=== PATIENT | female | born 1980 | race Caucasian/White ===

== ENCOUNTER 2025-02-23 01:36 | Emergency (ER) | payer MEDICAID, SELFPAY ==
[2025-02-23 01:39] VITALS: BMI 34.4
--- NOTE | 2025-02-23 01:52 | XR_ITS ---
Examination: PA chest single view Technique: Upright PA chest single view Date and time: February 23, 2025, 0206 hrs. Indications: Chest pain radiating to left arm beginning one hour ago. Findings: Normal heart size. The lungs are clear. The osseous structures are intact Impression: No active disease.
[2025-02-23 02:00] VITALS: BP 137/81; PULSE 83; RESP 18; TEMP 36.9; O2SAT 100
[2025-02-23 02:21] LABS: Basophils # (Auto) 0.1 Thou/mm3 (0.0-0.2); Basophils % (Auto) 1 % (0-2.5); Eosinophils # (Auto) 0.3 Thou/mm3 (0.0-0.5); Eosinophils % (Auto) 3 % (0-10); Hematocrit 37.6 % (36.0-46.0); Hemoglobin 12.3 g/dL (12.0-16.0); Immature Granulocytes Auto 0.01 Thou/mm3 (0.00-0.00); Lymphocytes # (Auto) 3.4 Thou/mm3 (1.0-4.8); Lymphocytes % (Auto) 33 % (10-50); Mean Corpuscular HGB Conc 32.7 g/dl (31.0-37.0); Mean Corpuscular Hemoglobin 28.5 pg (25.0-35.0); Mean Corpuscular Volume 87 fL (80-100); Monocytes # (Auto) 0.6 Thou/mm3 (0.0-0.8); Monocytes % (Auto) 6 % (0-12); Neutrophils # (Auto) 5.9 Thou/mm3 (1.8-7.7); Neutrophils % (Auto) 58 % (37-80); Nucleated Red Blood Cell # 0.00 Thou/mm3 (0.00-0.00); Nucleated Red Blood Cell % 0 /100 WBC (0); Platelet Count 210 Thou/mm3 (140-440); RDW Standard Deviation 48.3 fL (36.4-46.3); Red Blood Count 4.31 Miln/mm3 (4.00-5.20); White Blood Count 10.3 Thou/mm3 (3.6-11.0)
[2025-02-23] MEDS: ONDANSETRON ODT 4 MG TABRAP PO (02:30)
[2025-02-23 02:37] LABS: Collection Type, Urine Clean Catch
[2025-02-23 02:40] LABS: Bilirubin,Urine Negative (Negative); Blood,Urine 1+ (Negative); Clarity,Urine Clear (Clear/Hazy); Color,Urine Colorless (Lt Yel-Yel); Glucose, Urine Negative (Negative); Ketones,Urine Negative (Negative); Leukocyte Esterase,Urine Negative (Negative); Nitrite,Urine Negative (Negative); PH,Urine 6.0 (5.0-7.0); Protein,Urine 1+ (Neg - Trace); RBC,Urine 10 /hpf (0-3); Specific Gravity,Urine 1.011 (1.001-1.035); Squamous Epithelial Cell,Urine < 1 /hpf (0-5); Urobilinogen,Urine Negative mg/dL (0.0-1.0); WBC,Urine 1 /hpf (0-5)
[2025-02-23 02:58] LABS: B-Type Natriuretic Peptide < 20 pg/mL (0-100)
[2025-02-23 03:03] LABS: Alanine Aminotransferase 68 U/L (10-49); Albumin, Serum 4.4 gm/dL (3.5-5.0); Albumin/Globulin Ratio 1.4 (1.2-2.2); Alkaline Phosphatase 74 U/L (46-116); Anion Gap 12 (7-16); Aspartate Amino Transferase 49 U/L (0-34); BUN/Creatinine Ratio 14 Ratio (12-20); Bilirubin,Total 0.5 mg/dL (0.3-1.2); Blood Urea Nitrogen 18 mg/dL (9-23); Calcium 9.5 mg/dL (8.3-10.6); Calcium (Corrected) 9.5 mg/dL (8.5-10.1); Carbon Dioxide 22.6 mMol/L (20.0-31.0); Chloride 107 mMol/L (98-107); Creatinine (Component) 1.3 mg/dL (0.6-1.3); Estimated Creatinine Clearance 67.7 mL/min (>60); Globulin 3.1 gm/dL (2.3-3.5); Glucose 150 mg/dL (74-106); Osmolality,Calculated 288 (275-295); Potassium 3.8 mMol/L (3.4-5.1); Sodium 142 mMol/L (136-145); Thyroid Stimulating Hormone 4.84 uIU/mL (0.55-4.78); Total Protein 7.5 gm/dL (5.7-8.2); Troponin I < 0.002 ng/mL (0.0-0.045); eGFR 52 See Note
[2025-02-23 03:03] LABS: HCG Qualitative,Urine Negative
--- NOTE | 2025-02-23 03:38 | PD.EDCHEST ---
ED Chest Pain RME/HPI General Chief Complaint: Chest Pain Stated Complaint: CHEST PAIN Time Seen by Provider: 02/23/25 01:41 Arrival date/time: 02/23/25 01:36 This is a case of 44-year-old female with history of diabetes came in in the emergency room due to chest pain sharp in character radiating to the left arm for 1 day patient denies any shortness of breath or palpitation persistence of the symptoms this patient decided to sought consult here in the emergency room Limitations: no limitations Related Data Previous Rx's ?Medication ?Instructions ?Recorded metformin 500 mg tablet 500 mg PO QDAY #30 tabs 04/25/20 Allergies Allergy/AdvReac Type Severity Reaction Status Date / Time Penicillins Allergy Intermediate THROAT Verified 02/23/25 01:37 CLOSES, VOMIT, RASH acetaminophen Allergy Mild RASH, VOMIT Verified 02/23/25 01:37 Review of Systems Review of Systems Systems Reviewed: All systems reviewed, normal except as documented Constitutional Constitutional: Reports system reviewed and no additional complaints, except as documented and Reports as per HPI Cardiovascular Cardiovascular: Reports system reviewed and no additional complaints, except as documented, Reports as per HPI and Reports dyspnea Respiratory Respiratory: Reports system reviewed and no additional complaints, except as documented, Reports as per HPI and Reports dyspnea Gastrointestinal Gastrointestinal: Reports system reviewed and no additional complaints, except as documented and Reports as per HPI Musculoskeletal Musculoskeletal: Reports system reviewed and no additional complaints, except as documented and Reports as per HPI Neurologic Neurologic: Reports system reviewed and no additional complaints, except as documented Past Medical History Past Medical History NEUROLOGIC: Negative Neurological Disorders or Seizures CARDIAC: Negative Cardiac Disorders or Congestive Heart Failure RESPIRATORY: Negative Chronic Obstructive Pulmonary Disease (COPD) or Asthma GASTROINTESTINAL: Negative Gastrointestinal Disorders or Hepatitis GENITOURINARY: Negative Genitourinary Disorders or Renal Disease REPRODUCTIVE: Positive Endometriosis and Previous Pregnancies; Negative Genital Herpes, Gonorrhea, Pelvic Inflammatory Disease, Syphilis or Uterine Prolapse MUSCULOSKELETAL: Negative Musculoskeletal Disorders ENDOCRINE: Positive Endocrine Disorders and Diabetes Mellitus Type 2 (INSULIN); Negative Diabetes Mellitus Type 1 HEMATOLOGIC: Negative Blood Disorders or Anemia PSYCHO/SOCIAL: Negative Depression OTHER HISTORY: Positive Hospitalization; Negative Autoimmune Disease, Falls, Blood Transfusions, Blood Transfusion Reaction, Anesthesia Reactions, MRSA, VRSA, Vancomycin-Resistant Enterococci, Human Immunodeficiency Virus (HIV), Chicken Pox, Measles, Mumps, Rubella (Serbian Measles), Pertussis, Clostridium Difficile or Cancer Family History FAMILY HISTORY: Positive Family Cardiac Disorders (MOTHER:HEART MURMUR, SON:HEART MURMUR); Negative Family Psychiatric Problems, Family Respiratory Disorders, Family Gastrointestinal Problems, Family Cancer, Family Surgery or Family Anesthesia Reaction Surgical History SURGICAL: Positive Section Social History SMOKING STATUS: Never smoker ED Exam General Limitations: Present no limitations General appearance: Present alert, in no apparent distress and other (Patient is awake alert oriented not in distress nontoxic looking well-hydrated well nourished) Head Head exam: Present atraumatic, normocephalic and normal inspection Eye Eye exam: Present normal appearance, PERRL and EOMI ENT ENT exam: Present normal exam, normal oropharynx and mucous membranes moist Neck Neck exam: Present normal inspection, full ROM and trachea midline; Absent tenderness Chest Chest inspection: Present normal inspection and symmetric chest wall rise; Absent tenderness Respiratory Respiratory exam: Present normal lung sounds bilaterally; Absent respiratory distress, wheezes, stridor, accessory muscle use or prolonged expiratory phase Cardiovascular Cardiovascular exam: Present regular rate, normal rhythm and normal heart sounds; Absent bradycardia, tachycardia, irregular rhythm, systolic murmur or diastolic murmur Abdominal Exam Abdominal exam: Present soft and normal bowel sounds; Absent distention, tenderness, guarding, rebound, rigidity, diminished bowel sounds, hyperactive bowel sounds, hypoactive bowel sounds or organomegaly Extremities Exam Extremities exam: Present normal inspection and full ROM Back Exam Back exam: Present normal inspection and full ROM Neurological Exam Neurological exam: Present alert, oriented X3, CN II-XII intact, normal gait and reflexes normal; Absent motor sensory deficit Psychiatric Psychiatric exam: Present normal affect and normal mood Skin Skin exam: Present warm, dry, intact and normal color Course Quality Measures none Orders Category Date Time Status EKG (ED ONLY) *Do not use* NOW Care 02/23/25 01:52 Completed EKG (ED Only) Stat Exams 02/23/25 01:52 Ordered XR chest 1V portable Stat Exams 02/23/25 01:52 Taken BNP [B-Type Natriuretic Peptide] Stat Lab 02/23/25 02:05 Completed CBC Stat Lab 02/23/25 02:05 Completed Comprehensive Metabolic Panel Stat Lab 02/23/25 02:05 Completed HCG Qualitative,Urine Stat Lab 02/23/25 02:35 Completed TSH [Thyroid Stimulating Hormone] Stat Lab 02/23/25 02:05 Completed Troponin I Stat Lab 02/23/25 02:05 Completed Urinalysis Stat Lab 02/23/25 02:35 Completed Aspirin Med 02/23/25 01:57 Discontinued 325 mg PO X1 ONE Ondansetron Odt [Zofran Odt] Med 02/23/25 01:57 Discontinued 4 mg PO X1 ONE Vital Signs Vital signs: Vital Signs Temperature 98.5 F 02/23/25 02:00 Pulse Rate 83 02/23/25 02:00 Respiratory Rate 18 02/23/25 02:00 Blood Pressure 137/81 H 02/23/25 02:00 Pulse Oximetry (%) 100 02/23/25 02:00 Oxygen Delivery Method Room Air 02/23/25 02:00 Patient is afebrile not tachycardic not tachypneic BP stable not hypoxic oxygen saturation is 100 Chest Pain MDM Narrative MDM Narrative:: This is a case of 44-year-old female with history of diabetes came in in the emergency room due to chest pain sharp in character radiating to the left arm for 1 day patient denies any shortness of breath or palpitation persistence of the symptoms this patient decided to sought consult here in the emergency room physical examination patient is awake alert oriented not in distress nontoxic looking well-hydrated no well-nourished patient vital signs stable BP stable not tachycardic not tachypneic not hypoxic and afebrile lungs sound is clear no crackles no rales no retraction no stridor heart heart normal rate regular rhythm no murmur no edema the rest of the physical examination neurological exam is normal and unremarkable patient blood test showed no leukocytosis no anemia kidney and liver function is normal no electrolyte imbalance patient TSH slightly elevated but not significant patient troponin and BNP is normal patient EKG sinus rhythm patient chest x-ray is also normal at this point patient chest pain is unknown patient will follow-up with PCP in 2 days for reevaluation and to be referred to product marketing director for possible echocardiogram stress test and Holter monitor for any recurrence persistent worsening symptoms return to the emergency room immediately or call 911 Patient was discharged with comfortable condition walking with stable gait. Patient verbalized no further complains explained diagnosis and answered patient question. Patient is comfortable with the proposed management plan including the need to follow up with his/her primary care physician and any specialist if applicable Discussed patient for any urgent condition or worsening sx, He/She needed to go to emergency room immediately or call 911. Patient acknowledge the responsibility to follow up as instructed and to monitor her/his symptoms. For any persistence of the symptoms for more than 3-5 days return precaution advised. Discussed the result of the test and was given printed discharge instruction Patient data External records reviewed:: [facility] previous records Clinical information provided by:: patient Social determinants that could affect healthcare access:: none Patient has the following chronic illnesses:: None How is presenting disease/condition affected by chronic disease/condition?: no chronic disease Evaluation data The following diagnostics were reviewed and interpreted by me:: lab results, radiology exam(s) and EKG tracing(s) Lab and/or radiology exams considered but not ordered:: Reviewed Interpretation Summary: Reviewed Medications / Prescriptions Medications or Prescriptions considered but not ordered:: Given Medication administrations:: Medication Administration History Discontinued Medications Aspirin (Aspirin 325 Mg Tablet) 325 mg PO X1 ONE Stop: 02/23/25 01:58 Last Admin: 02/23/25 02:30 Dose: 325 mg Documented By: CVL Ondansetron HCl (Ondansetron Odt 4 Mg Tabrap) 4 mg PO X1 ONE; Protocol Stop: 02/23/25 01:58 Last Admin: 02/23/25 02:30 Dose: 4 mg Documented By: CVL Given Consultations Consultation(s) initiated? (list below): No Diagnosis Chest Pain Differential Diagnosis: atypical chest pain, costochondritis and chest pain Most likely diagnosis given after review of the tests above:: Chest pain of unknown etiology Admission Indicated Admission indicated?: not indicated Explain why admission is indicated or not indicated:: Not indicated Admission Request Was there a request for admission?: No Admission Attestation Admission request attestation: Not indicated Disposition Plan Disposition Plan: Discharge Discharge Attestation Discharge Attestation: The patient and all family members were given an opportunity to ask questions and understood the discharge instructions. Discharge instructions specifically effects, indications for sooner follow up or return to the emergency department, and the expected course of current diagnosis. Patient condition: Stable Discharge Plan Plan Patient Disposition: HOME (Self Care) Patient condition on transfer: Stable Prescriptions/Referrals Prescriptions/Med Rec: No Action metformin 500 mg tablet 500 mg PO QDAY Qty: 30 11RF Referrals: Malissa Weller PA-C [Primary Care Provider] - In 1 week Problem List Clinical Impression: Chest pain of unknown etiology Patient/Caregiver Discharge Instructions Education Materials: ED Chest Pain, Uncertain Cause Additional Instructions: Follow-up with your primary care physician in 2 days for reevaluation and to be referred to product marketing director for further evaluation and treatment of chest pain for possible echocardiogram stress test and Holter monitor for Persistent worsening symptoms or any emergent concern call 911 or go to the nearest emergency room Print Language: Polish Stand Alone Forms: Ashli Award Info., Patient Portal Info Letter PA/LEAH Supervising Physician PA/LEAH Supervising Physician: dr [email or web address]
== END 2025-02-23 03:50 | disposition home or self-care (01) ==
PROVIDERS: Nurse Practitioner Family; Emergency Provider Emergency Medicine; PCP Physician Assistant
DX: R07.9 Chest pain, unspecified (principal)
CPT/HCPCS: 36415; 71045; 80053; 81001; 81025; 83880; 84443; 84484; 85025; 93005; 99283; Q0162; A9270